=== PATIENT | female | born 1985 | race American Indian/Alaskan Native ===

== ENCOUNTER 2017-02-16 15:58 | Emergency (ER) | payer BC, OTHER ==
[2017-02-16 16:16] VITALS: BP 141/76
--- NOTE | 2017-02-16 16:19 | EDM.PDOC ---
ED HPI GI/ABDOMINAL - General Chief Complaint: Gastrointestinal Problem Stated Complaint: vomiting Time Seen by Provider: 02/16/17 16:02 Source: Reports: Patient History Limitations: Reports: No limitations - History of Present Illness INITIAL COMMENTS - FREE TEXT/NARRATIVE: c/o N, V, D felt fine yesterday, awoke 3 AM and had vomiting for several hours, then watery diarrhea x 10 for past 8h, gets a cramp and then has the diarrhea, slight nausea now, no more vomiting. Drinks water and has a BM. No fever, has felt cold. 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 Lives with her 2 children, ages 8 and 10, who are in good health. no prior GI problems missed work today, off work next 2d - Related Data Allergies/ADRs: Allergies Allergy/AdvReac Type Severity Reaction Status Date / Time No Known Allergies Allergy Verified 02/16/17 16:06 Home Meds: Home Meds FLUoxetine HCl [Fluoxetine HCl] 20 mg PO DAILY 06/05/15 [History] Loperamide [Imodium AD] 2 mg PO Q1H PRN #20 tablet 02/16/17 [Rx] Metoclopramide HCl 10 mg PO Q6H PRN #8 tablet 02/16/17 [Rx] Social & Family History - Tobacco Use Smoking Status *Q: Light Tobacco Smoker Years of Tobacco use: 5 - Alcohol Use Days Per Week of Alcohol Use: 2 Number of Drinks Per Day: 2 Total Drinks Per Week: 4 - Recreational Drug Use Recreational Drug Use: No ED ROS GENERAL - Review of Systems Review Of Systems: See Below Constitutional: Reports: no symptoms HEENT: Reports: No symptoms Respiratory: Reports: No Symptoms Endocrine: Reports: no symptoms GI/Abdominal: Reports: Diarrhea, Nausea, Vomiting : Reports: no symptoms Musculoskeletal: Reports: no symptoms Skin: Reports: no symptoms Neurological: Reports: No Symptoms Psychiatric: Reports: No symptoms Hematologic/Lymphatic: Reports: no symptoms Immunologic: Reports: no symptoms ED EXAM, GI/ABD - Physical Exam Exam: See Below Exam Limited By: No limitations General Appearance: alert, WD/WN, no apparent distress Ears: hearing grossly normal Nose: normal inspection, normal mucosa, no blood Throat/Mouth: Normal inspection, Normal voice, No airway compromise Head: atraumatic, normocephalic Neck: normal inspection, supple, non-tender Respiratory/Chest: no respiratory distress, lungs clear, normal breath sounds, no accessory muscle use, chest non-tender Cardiovascular: regular rate, rhythm, no edema, no gallop, no murmur, no rub GI/Abdominal: normal bowel sounds, soft, no organomegaly, no distention, no mass , other (slight tender across upper quadrants, ND, no guard, no rebound) Back Exam: normal inspection, full range of motion, NT Extremities: normal inspection, normal range of motion, non-tender, no pedal edema, normal capillary refill Neurological: alert, oriented, CN II-XII intact, normal cognition, normal gait, normal reflexes, no motor/sensory deficits Psychiatric: normal affect, normal mood Skin Exam: Warm, Dry, Intact, Normal color, No rash, Other (turgor wnl) Lymphatic: no adenopathy Course - Re-Assessments/Exams Free Text/Narrative Re-Assessment/Exam: 02/16/17 16:18 course too acute for C diff which is unlikely, c/w virus, lasting 2d in community Departure - Departure Time of Disposition: 16:19 Disposition: DC/Tfer to Other 70 Condition: good Clinical Impression: Viral gastroenteritis Prescriptions: Loperamide [Imodium AD] 2 mg PO Q1H PRN #20 tablet PRN Reason: Diarrhea Metoclopramide HCl 10 mg PO Q6H PRN #8 tablet PRN Reason: Nausea Instructions: Viral Gastroenteritis, Adult, [id number] Forms: ED Department Discharge Additional Instructions: For diarrhea, take loperamide 2 mg 1 tab after each unformed stool up to 8 tabs in 24 hours. For nausea, take metoclopramide 10 mg 1 tab every 6 hours as needed. Maintain fluids without caffeine. No work for 2 days, including today. See your doctor in 2 days if you are not feeling better. Return to ED if you are feeling worse. Call your Physician or Return to Emergency Department if: * Your condition worsens in any way. * You develop fever greater than 100.4. * You have vomiting that does not stop with medications. * You have pain that is not controlled with medications.
== END 2017-02-16 16:25 | disposition other institution (70) ==
LOC: FB.ED 15:58
DX: A08.4 Viral intestinal infection, unspecified (principal); F17.200 Nicotine dependence, unspecified, uncomplicated; Z79.899 Other long term (current) drug therapy
CPT/HCPCS: 99283

== ENCOUNTER 2020-04-16 21:07 | Emergency (ER) | payer MEDICAID, OTHER ==
--- NOTE | 2020-04-16 21:37 | EDM.PDOC ---
ED HPI GENERAL MEDICAL PROBLEM - General Stated Complaint: SOB, KENDALLSTION Time Seen by Provider: 04/16/20 21:30 Source of Information: Reports: Patient History Limitations: Reports: No Limitations - History of Present Illness INITIAL COMMENTS - FREE TEXT/NARRATIVE: 35-year-old female who had onset of nasal congestion and sneezing about a week ago. She felt that these were just allergy symptoms and she had a telemedicine visit with her primary provider and was placed on some additional allergy medicines (Flonase) and this appeared to not really have any effect and she felt that her symptoms have been fairly persistent and then over the past day they seem to have worsened and became associated with a sore and scratchy throat and a mild cough today she also has been feeling short of breath through the day and that has progressively worsened and she developed some sharp anterior, upper and central chest pain is worse with breathing and with the mild cough that she has had. She has had no nausea or vomiting. She has been able to eat and drink normally. No fevers or chills. She does report that she has had decreased taste over the past week as well. She currently rates her pain as a 1-2/10 but the pain does go up to a 4-5/10 at its worst. The pain does not radiate. She states she was quite anxious with this before and she took a Xanax for which he is prescribed for her anxiety and her symptoms seemed to have improved. No known exposures to anyone with Covid 19. There are no other associated signs or symptoms. There are no other modifying factors. 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: Other Medication(s) (Xanax) mid chest Pain Score (Numeric/FACES): 1 - Related Data Allergies Allergy/AdvReac Type Severity Reaction Status Date / Time No Known Allergies Allergy Verified 02/16/17 16:06 Home Meds: Home Meds FLUoxetine HCl [Fluoxetine HCl] 20 mg PO DAILY 06/05/15 [History] Loperamide [Imodium AD] 2 mg PO Q1H PRN #20 tablet 02/16/17 [Rx] Metoclopramide HCl 10 mg PO Q6H PRN #8 tablet 02/16/17 [Rx] Magnesium Oxide 400 mg PO BID #6 tablet 04/16/20 [Rx] Potassium Chloride 20 meq PO BID #6 tab.er.prt 04/16/20 [Rx] Past Medical History Gastrointestinal History: Reports: GERD Psychiatric History: Reports: Anxiety, Depression, Panic Attack Endocrine/Metabolic History: Reports: Obesity/BMI 30+ - Past Surgical History HEENT Surgical History: Reports: Oral Surgery ([place] teeth extraction) GI Surgical History: Reports: Cholecystectomy Female Surgical History: Reports: D&C Social & Family History - Tobacco Use Smoking Status *Q: Unknown Ever Smoked (Nonsmoker) - Caffeine Use Caffeine Use: Reports: Soda - Alcohol Use Alcohol Use History: Yes Alcohol Use Frequency: Monthly - Sexual History Sexual History: Reports: Other (See Below) (No sexual intercourse for the past year) - Living Situation & Occupation Occupation: Unemployed ED ROS GENERAL - Review of Systems Review Of Systems: See Below Constitutional: Reports: No Symptoms HEENT: Reports: Other (Nasal congestion) Respiratory: Reports: Shortness of Breath, Pleuritic Chest Pain, Cough Cardiovascular: Reports: Chest Pain GI/Abdominal: Reports: No Symptoms : Reports: No Symptoms Musculoskeletal: Reports: No Symptoms Skin: Reports: No Symptoms Neurological: Reports: No Symptoms Psychiatric: Reports: Anxiety Hematologic/Lymphatic: Reports: No Symptoms Immunologic: Reports: No Symptoms ED EXAM, GENERAL - Physical Exam Exam: See Below Exam Limited By: No Limitations General Appearance: Alert, No Apparent Distress, Obese Eye Exam: Bilateral Eye: EOMI, Normal Inspection, PERRL Ears: Normal External Exam, Hearing Grossly Normal Ear Exam: Bilateral Ear: Auricle Normal Nose: Normal Inspection, Normal Mucosa, No Blood Throat/Mouth: Normal Inspection, Normal Oropharynx, Normal Voice, No Airway Compromise Head: Atraumatic, Normocephalic Neck: Normal Inspection, Supple, Non-Tender, Full Range of Motion Respiratory/Chest: No Respiratory Distress, Lungs Clear, Normal Breath Sounds, No Accessory Muscle Use, Chest Non-Tender Cardiovascular: Normal Peripheral Pulses, Regular Rate, Rhythm, No JVD, No Murmur, No Rub Peripheral Pulses: 2+: Radial (L), Radial (R), Dorsalis Pedis (L), Dorsalis Pedis (R) GI/Abdominal: Normal Bowel Sounds, Soft, Non-Tender, No Mass Back Exam: Normal Inspection Extremities: Normal Inspection, Normal Range of Motion, Non-Tender, No Pedal Edema, Normal Capillary Refill Neurological: Alert, Oriented, CN II-XII Intact, Normal Cognition, No Motor/ Sensory Deficits Skin Exam: Warm, Dry, Intact, Normal Color, No Rash EKG INTERPRETATION EKG Date: 04/16/20 Time: 21:25 Rhythm: NSR Rate (Beats/Min): 78 [place]: Normal P-Wave: Present QRS: Normal ST-T: Other (Invert it T waves in leads III of unclear significance.) QT: Normal Comparison: NA - No Prior EKG EKG Interpretation Comments: PVC was present. Course - Vital Signs Last Recorded V/S: Last Vital Signs Temp 36.4 C 04/16/20 21:07 Pulse 90 04/16/20 21:07 Resp 20 04/16/20 21:07 BP 160/101 H 04/16/20 21:07 Pulse Ox 100 04/16/20 21:07 - Orders/Labs/Meds Orders: Active Orders 24 hr Category Date Time Status EKG Documentation Completion [RC] ASDIRECTED Care 04/16/20 21:33 Active Chest 1V Frontal [CR] Stat Exams 04/16/20 21:31 Taken EKG 12 Lead [EK] Routine Ther 04/16/20 21:31 Ordered Labs: Laboratory Tests 04/16/20 04/16/20 04/16/20 Range/Units 20:45 21:50 21:50 WBC 7.2 (4.5-12.0) X10-3/uL RBC 3.93 (3.23-5.20) x10(6)uL Hgb 12.0 (11.5-15.5) g/dL Hct 36.5 (30.0-51.3) % MCV 92.8 (80-96) fL MCH 30.5 (27.7-33.6) pg MCHC 32.9 (32.2-35.4) g/dL RDW 13.5 (11.5-15.5) % Plt Count 235 (125-369) X10(3)uL MPV 7.8 (7.4-10.4) fL Neut % (Auto) 68.9 (46-82) % Lymph % (Auto) 19.7 (13-37) % Foster % (Auto) 7.9 (4-12) % Eos % (Auto) 3 (1.0-5.0) % Baso % (Auto) 1 (0-2) % Neut # (Auto) 5.0 (1.6-8.3) # Lymph # (Auto) 1.4 (0.6-5.0) # Foster # (Auto) 0.6 (0.0-1.3) # Eos # (Auto) 0.2 (0.0-0.8) # Baso # (Auto) 0.0 (0.0-0.2) # D-Dimer, Quantitative (0.0-0.59) mg/LFEU Sodium 138 (135-145) mmol/L Potassium 3.4 L (3.5-5.3) mmol/L Chloride 102 (100-110) mmol/L Carbon Dioxide 28 (21-32) mmol/L BUN 9 (7-18) mg/dL Creatinine 0.8 (0.55-1.02) mg/dL Est Cr Clr Drug Dosing 97.13 mL/min Estimated GFR (MDRD) > 60 (>60) BUN/Creatinine Ratio 11.3 (9-20) Glucose 92 (80-116) mg/dL Calcium 8.7 (8.6-10.2) mg/dL Magnesium (1.8-2.5) mg/dL Total Bilirubin 0.4 (0.1-1.3) mg/dL AST 17 (5-25) IU/L ALT 22 (12-36) U/L Alkaline Phosphatase 84 (56-112) IU/L Troponin I (4.0-60.3) pg/mL Total Protein 7.1 (6.0-8.0) g/dL Albumin 3.5 (3.5-5.2) g/dL Globulin 3.6 g/dL Albumin/Globulin Ratio 1.0 SARS Virus RNA (PCR) Negative (NEGATIVE) 04/16/20 04/16/20 04/16/20 Range/Units 21:50 21:50 21:50 WBC (4.5-12.0) X10-3/uL RBC (3.23-5.20) x10(6)uL Hgb (11.5-15.5) g/dL Hct (30.0-51.3) % MCV (80-96) fL MCH (27.7-33.6) pg MCHC (32.2-35.4) g/dL RDW (11.5-15.5) % Plt Count (125-369) X10(3)uL MPV (7.4-10.4) fL Neut % (Auto) (46-82) % Lymph % (Auto) (13-37) % Foster % (Auto) (4-12) % Eos % (Auto) (1.0-5.0) % Baso % (Auto) (0-2) % Neut # (Auto) (1.6-8.3) # Lymph # (Auto) (0.6-5.0) # Foster # (Auto) (0.0-1.3) # Eos # (Auto) (0.0-0.8) # Baso # (Auto) (0.0-0.2) # D-Dimer, Quantitative 0.28 (0.0-0.59) mg/LFEU Sodium (135-145) mmol/L Potassium (3.5-5.3) mmol/L Chloride (100-110) mmol/L Carbon Dioxide (21-32) mmol/L BUN (7-18) mg/dL Creatinine (0.55-1.02) mg/dL Est Cr Clr Drug Dosing mL/min Estimated GFR (MDRD) (>60) BUN/Creatinine Ratio (9-20) Glucose (80-116) mg/dL Calcium (8.6-10.2) mg/dL Magnesium 1.4 L (1.8-2.5) mg/dL Total Bilirubin (0.1-1.3) mg/dL AST (5-25) IU/L ALT (12-36) U/L Alkaline Phosphatase (56-112) IU/L Troponin I < 4.0 L (4.0-60.3) pg/mL Total Protein (6.0-8.0) g/dL Albumin (3.5-5.2) g/dL Globulin g/dL Albumin/Globulin Ratio SARS Virus RNA (PCR) (NEGATIVE) Meds: Medications Discontinued Medications Generic Name Dose Route Start Last Admin Trade Name Freq PRN Reason Stop Dose Admin Magnesium Oxide 800 mg 04/16/20 22:36 04/16/20 22:50 Magnesium Oxide PO 04/16/20 22:37 800 mg ONETIME ONE Administration Potassium Chloride 40 meq 04/16/20 22:36 04/16/20 22:50 Potassium Chloride Solution PO 04/16/20 22:37 40 meq ONETIME ONE Administration - Radiology Interpretation Free Text/Narrative:: Portable chest x-ray showed no acute disease. - Re-Assessments/Exams Free Text/Narrative Re-Assessment/Exam: 04/16/20 22:49: The patient's blood tests were reassuring except for a mildly low potassium and a mildly low magnesium. Her chest x-ray was negative. A Covid 19 test was negative. Her vital signs were all reassuringly normal including O2 saturation of 100% on room air. She appears to have a viral respiratory infection. It is still possible that this could be Covid 19. She should self quarantine for at least 72 hours and at least until she is asymptomatic for 24 hours. She is stable for discharge at this point. Precautions and reasons for return to the emergency department were discussed with the patient emergency department and were detailed in her discharge instructions. Departure - Departure Time of Disposition: 22:55 Disposition: Home, Self-Care 01 Condition: Good Clinical Impression: Hypomagnesemia, Hypokalemia, Non-cardiac chest pain, Elevated blood pressure reading URI (upper respiratory infection) Qualifiers: URI type: unspecified URI Qualified Code(s): J06.9 - Acute upper respiratory infection, unspecified Anxiety disorder Qualifiers: Anxiety disorder type: generalized anxiety disorder Qualified Code(s): F41.1 - Generalized anxiety disorder - Discharge Information Prescriptions: Magnesium Oxide 400 mg PO BID #6 tablet Potassium Chloride 20 meq PO BID #6 tab.er.prt Instructions: Hypomagnesemia, Hypokalemia, Viral Respiratory Infection, Easy-To -Read, Nonspecific Chest Pain, Adult, [id number], Upper Respiratory Infection , Adult, [id number] Forms: ED Department Discharge Additional Instructions: Your blood tests were all reassuring except for a mildly low potassium and a mildly low magnesium. I have given you prescriptions of these medications to take over the next 3 days to help replace these minerals in your body. You appear to have a viral upper respiratory infection. Your COVID 19 test was negative. It is still possible that you have Covid but the initial test was negative. You should self quarantine at least for the next 72 hours and at least till 24 hours after your symptoms have resolved. The pain in your chest appears to be musculoskeletal in origin. Your EKG, heart enzyme tests and blood clot screening test were all negative or normal. Drink plenty of fluids. Take Tylenol and ibuprofen as needed for pain. Back to the emergency department for worsening pain, worse breathing, coughing up blood or any other concerning sign or symptom. He need to follow-up with your primary provider blood pressure rechecked. Sepsis Event Note (ED) - Focused Exam Vital Signs: Vital Signs Temp Pulse Resp BP Pulse Ox 04/16/20 21:07 36.4 C 90 20 160/101 H 100 - My Orders Last 24 Hours: My Active Orders 04/16/20 21:31 Chest 1V Frontal [CR] Stat EKG 12 Lead [EK] Routine 04/16/20 21:33 EKG Documentation Completion [RC] ASDIRECTED - Assessment/Plan Last 24 Hours: My Active Orders 04/16/20 21:31 Chest 1V Frontal [CR] Stat EKG 12 Lead [EK] Routine 04/16/20 21:33 EKG Documentation Completion [RC] ASDIRECTED
[2020-04-16 22:04] VITALS: PULSE 90
[2020-04-16] MEDS: Potassium Chloride 10% 20 MEQ/15 ML Soln 15 ML UD Cup PO ONE (23:00)
[2020-04-16] MEDS: Magnesium Oxide 400 MG Tab PO ONE (23:00)
[2020-04-16 23:25] VITALS: BP 132/90
--- NOTE | 2020-04-18 17:47 | CR ---
INDICATION: Chest pain. Shortness of breath. CHEST, ONE VIEW: AP upright portable view of the chest 04/16/20 - no comparisons. The heart did not appear grossly enlarged. There did appear to be some prominence of the upper lung pulmonary vasculature which could be on the basis of congestive change but should be correlated clinically. No consolidating pneumonia or effusion was seen. Overlying EKG leads are noted. IMPRESSION: Upper lung field pulmonary vasculature is somewhat prominent, etiology indeterminate, could be on the basis of fluid overload or other factors such as renal failure - acute myocardial event would be a consideration also. MTDD
== END 2020-04-16 23:10 | disposition home or self-care (01) ==
LOC: FB.ED 21:07
DX: J06.9 Acute upper respiratory infection, unspecified (principal); E87.6 Hypokalemia; E83.42 Hypomagnesemia; F41.1 Generalized anxiety disorder; R07.9 Chest pain, unspecified; R03.0 Elevated blood-pressure reading, without diagnosis of hypertension; F41.9 Anxiety disorder, unspecified; F32.9 Major depressive disorder, single episode, unspecified; E66.9 Obesity, unspecified; Z68.38 Body mass index [BMI] 38.0-38.9, adult; Z20.828 Contact with and (suspected) exposure to other viral communicable diseases; Z79.899 Other long term (current) drug therapy
CPT/HCPCS: 36415; 71045; 80053; 83735; 84484; 85025; 85379; 93005; 99285-25; A9270-GY; U0002